=== PATIENT | male | born 1980 | race Caucasian/White ===

== ENCOUNTER 2018-09-16 08:35 | Day surgery (SDC) | payer BC ==
[2018-09-07 15:41] VITALS: BMI 24.4
[2018-09-16] MEDS ORDERED: BUPIVACAINE HCL/EPINEPHRINE/PF 30 ML VIAL IJ ONE (10:50)
[2018-09-16] MEDS ORDERED: PROPOFOL 20 ML ONE ×2 (11:58→12:31)
[2018-09-16] MEDS ORDERED: MIDAZOLAM HCL 2 MG/2 ML SINGLE DOSE VIAL ONE ×2 (11:58→12:16)
[2018-09-16] MEDS ORDERED: DEXAMETHASONE SOD PHOSPHATE 4 MG/1 ML VIAL ONE (12:15)
[2018-09-16] MEDS ORDERED: ONDANSETRON 4 MG/2 ML VIAL ONE (12:15)
[2018-09-16] MEDS ORDERED: ceFAZolin SODIUM 1 GM VIAL ONE (12:18)
[2018-09-16] MEDS ORDERED: oxyCODONE HCL 5 MG TABLET PO PRN ×2 (12:30)
[2018-09-16] MEDS ORDERED: ONDANSETRON 4 MG/2 ML VIAL IVPUSH PRN (12:30)
[2018-09-16] MEDS ORDERED: LACTATED RINGERS SOLUTION 1,000 ML IV SCH (12:30)
--- NOTE | 2018-09-16 13:23 | OP ---
Operative Note - Note: Operative Date: 09/16/18 Pre-Operative Diagnosis: Right knee cartilage defect, femoral trochlea Operation: RKA, cartilage biopsy, synovectomy, chondroplasty Post-Operative Diagnosis: Same as Pre-op Surgeon: Baldo García Anesthesiologist/INTEGRATION SPECIALIST: Zacarias Chong Anesthesia: General Operative Report Dictated: Yes
--- NOTE | 2018-09-16 13:23 | DS ---
Physical Examination Vital Signs: Vital Signs Temperature 97.7 F 09/16/18 12:58 Pulse Rate 57 L 09/16/18 12:58 Respiratory Rate 18 09/16/18 12:58 Blood Pressure 122/63 09/16/18 12:58 O2 Sat by Pulse Oximetry (%) 99 09/16/18 12:58 Discharge Summary Reason For Visit: CARTILAGE DEFECT RIGHT KNEE Condition: Good - Instructions Diet, Activity, Other Instructions: Post Operative Instructions: Knee Arthroscopy Dr Baldo García 1. Pain following an arthroscopy is variable. Some patients will have more pain than others. You have been provided with a prescription for medication that contains a narcotic. You are not allowed to drive while on this medication. You should NOT take Tylenol (Acetaminophen) when taking the pain medication ( it will result in an overdose). Feel free to take medications such as Ibuprofen or Naprosyn in addition to the pain medicine if you do not have any problems with the NSAID class of medications. 2. You are allowed to remove the bandages and shower in 24 hours unless directed otherwise. You are not allowed to bathe or go swimming until the sutures are removed. Put band-aids on the sutures after your shower and do not put any creams or lotions over the incisions. 3. You are allowed to put all your weight on the leg and bend your knee, unless directed otherwise. 4. Apply ice to the knee for 15 min every hour or so. You may continue this for as many days as you like. 5. Please call the office to schedule a visit to have your sutures removed. 6. If for any reason you believe you may have an infection or are concerned, please feel free to call me. I can be reached through our office number 24 hours a day. 7. Please call our office with any questions; we will review the surgical findings during your post operative visit. Disposition: HOME - Home Medications Comprehensive Discharge Medication List: Ambulatory Orders NK [No Known Home Medication] 09/07/18
[2018-09-16 14:38] VITALS: BP 122/68; PULSE 61; TEMP 98
--- NOTE | 2018-09-23 10:02 | PATH ---
Surgical Pathology Report Patient Name: THEODORA TELLEZ Med. Rec. #: [id number] /Age/Gender: 1980 (Age: 38) / M Account: [id number] Location: [facility] Taken: 09/16/2018 Received: 09/16/2018 Reported: 09/23/2018 Physicians: Baldo García M.D. Specimen(s) Received RIGHT KNEE SHAVINGS Clinical History Cartilage defect, right knee Final Diagnosis KNEE, RIGHT, ARTHROSCOPIC SHAVINGS: FIBROSYNOVIAL TISSUE AND SCANT CARTILAGE WITH NO PATHOLOGIC FINDINGS. Electronically Signed Aliza Mobley M.D. Gross Description Received in formalin, labeled "right knee shavings" is a 2.5 x 1.5 x 0.3 cm aggregate of white and yellow soft to fibrous tissue. Administrative Receptionist tissue is submitted in two cassettes. AE/09/19/2018 ebram/09/19/2018
== END 2018-09-16 14:41 | disposition home or self-care (01) ==
LOC: FASU 08:35
PROVIDERS: ATTEND Orthopaedic Surgery
PROC: 0SBC4ZZ Excision of Right Knee Joint, Percutaneous Endoscopic Approach (ICD-10-PCS; 2018-09-16)
PROC: 0SBC4ZZ Excision of Right Knee Joint, Percutaneous Endoscopic Approach (ICD-10-PCS; principal; 2018-09-16 12:31)
DX: M24.10 Other articular cartilage disorders, unspecified site (principal); M65.861 Other synovitis and tenosynovitis, right lower leg
CPT/HCPCS: 29875; G0289; 88304-TC; 94760